=== PATIENT | female | born 1990 | race Asian ===

== ENCOUNTER 2021-08-16 05:50 | Inpatient (IN) ==
--- NOTE | 2021-08-08 10:05 | Anesthesiology Consultation ---
Date of Service August 08, 2021 Assessment & Plan (1) Encounter for pre-operative examination: Chart Review Chart Review: Acceptable Risk for Surgery and Patient NOT seen in Pre Admission Testing Consults Requested none History Surgery Operation Date: 08/16/21 09:20 Proposed Procedures p Section in LD - J. Vishnu Hoffman MD, FACOG Height/Weight Height: 5 ft 1 in Weight: 61.689 kg Allergies Allergy/AdvReac Type Severity Reaction Status Date / Time No Known Allergies Allergy Verified 08/07/21 15:10 Medications Home Medications Medication Instructions Recorded Confirmed Last Taken prenat.vits,camille,[id number] 1 tab PO DAILY 01/30/21 08/07/21 Unknown breast pump #1 ea 05/20/21 07/30/21 Unknown Past Medical History Medical History Endometriosis Fibroid uterus Past Family History Family History Grandfather Myocardial infarction Mother Thyroid dysfunction Other Diabetes No family history of adverse response to anesthesia Denies family history of Ovarian cancer Prostate cancer Breast cancer Colorectal cancer Cancer Past Surgical History Surgical History History of myomectomy Social History Smoking Status: Never smoker Do You Dip or Chew Tobacco: No Hx Alcohol Use: No Hx Substance Use: No substance use type: does not use Testing Laboratory Results Laboratory Tests 06/18/21 08:55 Hgb 11.8 L Hct 36.6 L
--- NOTE | 2021-08-15 13:59 | History & Physical Report ---
Date of Service August 15, 2021 Assessment & Plan (1) Encounter for pre-operative examination: Plan: section. The patient was counseled to the nature of the procedure including alternatives such as labor. Risks were discussed including bleeding infection injury to bowel bladder ureter vessels and even baby. Deep Vein thrombosis, pulmonary embolus discussed. Breakdown of incision reviewed. Deep vein thrombosis pulmonary embolus hernia and failure of the incision to heal were discussed Patient verbalized understanding of this and was given ample time to ask questions We discussed the prior myomectomy and endometriosis both of these places additio nal risks at adhesions and scar tissue and we discussed an increased chance of internal organ injury with increased scar tissue adhesions we discussed treatment of this as well if this were to occur History of Present Illness Primary Care Provider: NO PCP scheduled for 37 week C/S because of prior myomectomy Allergies Allergy/AdvReac Type Severity Reaction Status Date / Time No Known Allergies Allergy Verified 08/15/21 13:45 Home Medications Medication Instructions Recorded Confirmed Type prenat.vits,camille,mds-[id number]-[id number] 1 tab PO DAILY 01/30/21 08/15/21 History breast pump #1 ea 05/20/21 08/15/21 Rx Patient History Medical History Endometriosis Fibroid uterus Surgical History History of myomectomy Family History Grandfather Myocardial infarction Mother Thyroid dysfunction Other Diabetes No family history of adverse response to anesthesia Denies family history of Ovarian cancer Prostate cancer Breast cancer Colorectal cancer Cancer Social History Smoking Status: Never smoker Second Hand Exposure: No; Hx Alcohol Use: No Hx Substance Use: No Preferred Language: Mongolian Communication Ability: Effective Visual Impairment: No Limitations Hearing Ability: Normal Online Tutor Required: No Beliefs That Will Affect Care: None marital status: marital status details: Domingo Mohan (32) [phone] Current Living Situation: Spouse Current Living Situation Comment: lives with spouse, no pets current occupational status: employed current occupation: Teach at [employer] Feels Safe at Home: Yes Assistive Devices: None Review of Systems as per Subjective / HPI Physical Exam Constitutional: WD/WN, vitals as above well developed and well nourished Respiratory: normal respiratory effort, lungs clear to auscultation normal respiratory effort Cardiovascular: RRR, no murmur, no edema Gastrointestinal (Abdomen): normal bowel sounds, soft, nontender, no hepatosplenomegaly Coding Level of Care Code None Diagnoses Encounter for pre-operative examination Z01.818
[~2021-08-16 05:50] MED LIST: LACTATED RINGER'S 1,000 ML IV SCH
[2021-08-16] MEDS ORDERED: CITRIC ACID/SODIUM CITRATE 15 ML UDC PO SCH (06:00)
[2021-08-16] MEDS ORDERED: ceFAZolin 2000MG 2,000 MG/15 ML SYR IV SCH (06:00)
[2021-08-16 06:23] LABS: Basophils # (auto) 0.02 K/uL (0-0.2); Basophils % (auto) 0.2 %; Eosinophils % (auto) 1.1 %; Hemoglobin 12.8 g/dL (12.0-16.0); Immature Granulocytes # (auto) 0.12 K/uL (0.00-0.02); Immature Granulocytes % (auto) 1.3 %; Mean Corpuscular Hgb Conc 33.7 g/dL (32-36); Mean Corpuscular Volume 89.2 fL (80-100); Mean Platelet Volume 12.5 fL (7.4-10.4); Monocytes # (auto) 0.89 K/uL (0.11-0.59); Monocytes % (auto) 9.4 %; Neutrophils # (auto) 6.48 K/uL (1.4-6.5); Platelet Count 182 K/uL (130-400); RDW Coefficient of Variation 13.6 % (11.5-14.5); RDW Standard Deviation 44.4 fL (36.4-46.3); Red Blood Count 4.26 M/uL (4.2-5.4); White Blood Count 9.51 K/uL (4.8-10.8)
--- NOTE | 2021-08-16 06:52 | History & Physical Bridge Note ---
Date of Service August 16, 2021 History & Physical Bridge Note I have examined the patient, reviewed the History & Physical and in the interval since the performance of the History & Physical I have noted the following changes of clinical significance: no changes noted
[2021-08-16] MEDS ORDERED: ePHEDrine sulfate 50 MG/ML AMP IV PRN (07:25)
[2021-08-16] MEDS ORDERED: KETOROLAC 30 MG/ML VIAL IV PRN (07:25)
[2021-08-16] MEDS ORDERED: NALOXONE HCL 0.4 MG/1 ML VIAL/CARP IV PRN (07:25)
[2021-08-16] MEDS ORDERED: ONDANSETRON INJ 2 MG/ML 2 ML VIAL IV PRN (07:25)
[2021-08-16] MEDS ORDERED: NALOXONE HCL 1 MG in SODIUM CHLORIDE 0.9% 1000ML 1,000 ML IV PRN (07:25)
[2021-08-16] MEDS ORDERED: NALOXONE HCL 0.08 MG in SYRINGE 1.8 ML IV PRN (07:25)
[2021-08-16] MEDS ORDERED: MoRPHine SULFATE PF 1 MG/ML 10 ML AMP/VIAL INT SPINAL ONE (07:25)
[2021-08-16] MEDS ORDERED: NALBUPHINE HCL INJ 10 MG/ML AMP IV PRN (07:25)
[2021-08-16] MEDS ORDERED: LACTATED RINGER'S 500 ML IV PRN (07:25)
[2021-08-16] MEDS ORDERED: diphenhydrAMINE 50 MG/ML VIAL IV PRN (07:25)
[2021-08-16] MEDS ORDERED: HYDROmorphone INJ 0.5 MG/0.5 ML SYR IV PRN (07:25)
[2021-08-16] MEDS ORDERED: SODIUM CHLORIDE 0.9% 1000ML 1,000 ML IV SCH (07:30)
[2021-08-16] MEDS ORDERED: NO NARCOTICS OR SEDATIVES SCH (07:30)
[2021-08-16] MEDS ORDERED: fentaNYL citrate 100 MCG/2 ML VIAL ONE (07:31)
[2021-08-16] MEDS ORDERED: MoRPHine SULFATE PF 1 MG/ML 10 ML AMP/VIAL ONE (07:32)
[2021-08-16] MEDS ORDERED: OXYTOCIN 10 UNITS/ML 10ML VIAL ONE (07:37)
[2021-08-16] MEDS ORDERED: PHENYLEPHRINE 100MCG/ML 5ML SYR ONE (07:54)
[2021-08-16] MEDS ORDERED: ONDANSETRON INJ 2 MG/ML 2 ML VIAL ONE (08:12)
[2021-08-16 08:46] LABS: Base Excess Cord Arterial Bld -0.6 mEq/L (-9-1.8); CO2 Cord Arterial Blood 58 mmHg (39.1-73.5); HCO3 Cord Arterial Blood 28 mmol/L (19.7-28.5); PO2 Cord Arterial Blood 19 mmHg (4.1-31.7)
[2021-08-16 08:51] LABS: Base Excess Cord Venous Blood -0.2 mEq/L (-7.7-1.9); Cord Venous Blood HCO3 26 mmol/L (18.4-26.8); Cord Venous Blood PCO2 46 mmHg (30.4-57.2); Cord Venous Blood PO2 24 mmHg (14.1-43.3)
[2021-08-16 08:52] LABS: Oxygen Sat Cord Arterial Blood < 60.0 % (<60)
[2021-08-16 08:53] LABS: Cord Venous Blood pH 7.36 (7.20-7.44); O2 Saturation Cord Venous Bld < 60.0 % (<68); pH Cord Arterial Blood 7.29 (7.1-7.38)
--- NOTE | 2021-08-16 08:55 | Operative Report ---
PG Post Operative Report Pre & Post Diagnosis Operation Date: 08/16/21 07:30 Pre-Op Diagnosis: History of Myomectomy. 37 weeks gestation. Post-Op Diagnosis: Same as above. I identified the patient and participated in the time-out.: Yes Procedure Operation Date: 08/16/21 07:30 Actual Procedures p Section (Delivery of Baby Through Abdominal Incision)delivery of live female child and 0809 in OR #3(Bilateral) - Donovan Hoffman MD, FACOG Surgeon Donovan Hoffman MD, FACOG Drop Worker Dr. Wallace Estimated Blood Loss 500 Findings Consistent with Post-Op Diagnosis Specimens Cord gases cord blood Description of Procedure Regional anesthetic had been given by anesthesia patient was prepped and draped with a leftward tilt preoperative antibiotics had been given in appropriate timing by anesthesiology. Once the prep was allowed to fully dry timeout was performed. Pickups with teeth were used to test the incision area was found to be adequate for incision as the patient did not feel sharp pain. Scalpel was used to make a Pfannenstiel incision on the lower abdomen. We then cut through the subcutaneous fat down to the level of the anterior rectus sheath fascia this was cut in the midline and then extended laterally with the curved Alva scissors. At this stage we then placed 2 Desean clamps on the anterior aspect of the fascia. Using the curved Alva's we are able to dissect the fascia superiorly away from the rectus muscles. Care was taken to maintain hemostasis. Desean clamps were then placed to the inferior aspect of the anterior sheath of the fascia. Fascia was then dissected away from the rectus muscles inferiorly towards the pubic bone. A Desean was then placed in the midline both inferiorly and superiorly. This was to allow exposure by retraction rectus muscles were in the midline with were then able to cut through the peritoneum and then enter the peritoneal cavity. Opening was enlarged to allow exposure of the peritoneal cavity both superiorly and inferiorly. Once adequate space was obtained a bladder retractor was placed to expose the lower segment Metzenbaums were used to dissect the bladder flap inferiorly away from the uterus. This was done sharply bladder retractor was then repositioned to expose the lower segment of the uterus. There was a uterine fibroid however it was not in the low segment anteriorly Fresh scalpel was used to make a low transverse incision on the uterus. Uterus was then entered bluntly with the operators finger, membranes ruptured and the opening was enlarged using the operators fingers bluntly pulling superiorly and inferiorly to allow exposure. Baby was delivered by first flexion of the head elevation of the head out of the pelvis and then pressure by the assistant sales director on the maternal abdomen. Baby's head was then delivered mouth and then nares were suctioned and then using gentle traction the baby was fully delivered. Live vigorous . Fluid was clear cord clamped and cut cord gases obtained cord blood obtained baby handed to pediatrics. Placenta removed was removed with traction we ensure the entire placenta was removed with a moist lap sponge into the uterus Uterus could not be exteriorized, because of the large uterine fibroid so the repair was done while the uterus was in the pelvis using retractors for exposure. IV Pitocin had been started by anesthesia tone improved there were no extensions the uterus was then closed using 0 Monocryl in a 2 layer closure the first layer closed in a running locked fashion from left to right and then a second closure from left to right in a running nonlocked fashion. At this stage hemostasis was excellent. Uterus was placed back in the peritoneal cavity with suction irrigation out and inspection of the uterus at this stage revealed excellent hemostasis I did apply Jassi to the left lower quadrant aspect of the incision as there was some minimal ooze Retractors were removed urine color was clear at this stage of the case we inspected the rectus muscles they were hemostatic fascia was closed with 0 Vicryl subcutaneous fat was irrigated and closed with 3-0 Vicryl skin closed with 4-0 subcuticular Monocryl I attest to the content of the Intraoperative Record and any orders documented therein. Any exceptions are noted below. OB Procedure Charges 51010
[2021-08-16] MEDS ORDERED: HYDROCORTISONE ACETATE 25 MG SUPP PR PRN (08:58)
[2021-08-16] MEDS ORDERED: MAGNESIUM HYDROXIDE SUSP 30 ML UDC PO PRN (08:58)
[2021-08-16] MEDS ORDERED: BENZOCAINE 20% AER SPR 82.5 GM CAN EXT PRN (08:58)
[2021-08-16] MEDS ORDERED: DIPHTHERIA/TETANUS/PERTUSSIS 0.5 ML SYR/VIAL IM ONE (08:58)
[2021-08-16] MEDS ORDERED: SENNA 8.6 MG TAB PO PRN (08:58)
[2021-08-16] MEDS ORDERED: ARISTA ABSORBABLE HEMOSTAT 3GM TOP ONE (08:59)
[2021-08-16] MEDS ORDERED: LACTATED RINGER'S 1,000 ML IV SCH (09:00)
--- NOTE | 2021-08-16 10:53 | Anesthesiology Progress Note ---
Date of Service August 16, 2021 Anesthesia Post Procedure Vital Signs Vital Signs: Temp Pulse Resp BP Pulse Ox 08/16/21 10:42 86 123/73 08/16/21 10:40 87 99 08/16/21 10:35 86 99 08/16/21 10:30 83 99 08/16/21 10:25 88 100 08/16/21 10:20 86 99 08/16/21 10:18 73 115/67 08/16/21 10:15 82 100 08/16/21 10:10 82 99 08/16/21 10:05 78 99 08/16/21 10:00 96 H 100 08/16/21 09:55 89 100 08/16/21 09:50 83 99 08/16/21 09:45 92 H 100 08/16/21 09:40 85 131/71 100 08/16/21 09:35 88 100 08/16/21 09:30 85 20 125/75 100 08/16/21 09:25 82 100 08/16/21 09:20 84 20 129/68 98 08/16/21 09:15 90 100 08/16/21 09:10 76 20 105/61 100 08/16/21 09:05 86 99 08/16/21 09:00 81 105/57 L 99 08/16/21 08:55 36.8 C 81 20 99 08/16/21 08:49 82 102/55 L 98 08/16/21 07:26 90 99 08/16/21 07:25 77 111/71 08/16/21 07:21 85 99 08/16/21 06:00 36.8 C 18 08/16/21 05:59 73 119/71 Transfer of Care Handoff Completed per policy Notes Mental Status: alert / awake / arousable Patient Amnestic to Procedure: Yes Nausea / Vomiting: adequately controlled Pain: adequately controlled Airway Patency, RR, SpO2: stable & adequate BP & HR: stable & adequate Hydration State: stable & adequate Neuraxial Anesthesia: was administered and sensory block is resolving Anesthetic Complications: no major complications apparent and Pt Satisfied with anesthetic care
[2021-08-16] MEDS: OXYTOCIN 20 UNITS in LACTATED RINGER'S 1,000 ML IV SCH ×2 (12:34→20:31)
[2021-08-16] MEDS: SIMETHICONE 80 MG CHEW PO SCH ×3 (14:14→20:31)
[2021-08-16] MEDS: DOCUSATE SODIUM 100 MG CAP PO SCH (20:31)
[2021-08-17] MEDS ORDERED: DC INTRASPINAL MORPHINE SCH (01:25)
[2021-08-17] MEDS ORDERED: KETOROLAC 30 MG/ML VIAL IV PRN (01:26)
[2021-08-17] MEDS ORDERED: PROMETHAZINE HCL 25 MG in SODIUM CHLORIDE 0.9% 50 ML IV PRN (01:26)
[2021-08-17] MEDS ORDERED: diphenhydrAMINE 50 MG/ML VIAL IV PRN (01:26)
[2021-08-17] MEDS ORDERED: ONDANSETRON INJ 2 MG/ML 2 ML VIAL IV PRN (01:26)
[2021-08-17] MEDS ORDERED: diphenhydrAMINE Capsule 25 MG CAP PO PRN (01:26)
[2021-08-17] MEDS ORDERED: oxyCODONE/ACETAMINOPHEN 5mg/325mg TAB PO PRN (01:26)
[2021-08-17 07:13] LABS: Basophils # (auto) 0.03 K/uL (0-0.2); Basophils % (auto) 0.1 %; Eosinophils # (auto) 0.09 K/uL (0-0.5); Eosinophils % (auto) 0.4 %; Hematocrit (blood only) 30.4 % (37-47); Hemoglobin 10.2 g/dL (12.0-16.0); Immature Granulocytes # (auto) 0.06 K/uL (0.00-0.02); Immature Granulocytes % (auto) 0.3 %; Lymphocytes # (auto) 1.21 K/uL (1.2-3.4); Lymphocytes % (auto) 5.6 %; Mean Corpuscular Hemoglobin 29.7 pg (25-34); Mean Corpuscular Hgb Conc 33.6 g/dL (32-36); Mean Corpuscular Volume 88.6 fL (80-100); Mean Platelet Volume 12.2 fL (7.4-10.4); Monocytes # (auto) 1.15 K/uL (0.11-0.59); Monocytes % (auto) 5.3 %; Neutrophils # (auto) 18.97 K/uL (1.4-6.5); Neutrophils % (auto) 88.3 %; Nucleated RBC # (auto) 0.02 K/uL (0-0); Nucleated RBC % (auto) 0.1 %; Platelet Count 159 K/uL (130-400); RDW Coefficient of Variation 13.6 % (11.5-14.5); RDW Standard Deviation 44.4 fL (36.4-46.3); Red Blood Count 3.43 M/uL (4.2-5.4); White Blood Count 21.51 K/uL (4.8-10.8)
[2021-08-17] MEDS: IBUPROFEN 600 MG TAB PO PRN ×3 (07:38→20:52)
[2021-08-17] MEDS: FERROUS SULFATE 325 MG TAB PO SCH (07:38)
[2021-08-17] MEDS: PRENATAL VITAMIN 1 TAB PO SCH (07:39)
[2021-08-17] MEDS: DOCUSATE SODIUM 100 MG CAP PO SCH ×2 (07:39→20:52)
[2021-08-17] MEDS: SIMETHICONE 80 MG CHEW PO SCH ×4 (07:39→20:52)
--- NOTE | 2021-08-17 09:04 | Obstetrical Progress Note ---
Date of Service August 17, 2021 Assessment & Plan (1) delivery delivered: Plan: 31yo POD 1 s/p LTCS) at 37 weeks -Continue routine care -Vitals reviewed- HDS, afebrile -GBS neg -Encourage ambulation, regular diet -corona removed this morning, voiding trial today -brought abdominal binder with her, may use for relief -Pain control with ibuprofen, acetaminophen PRN -Encourage -Hgb 10.2 stable -f/u in 6 weeks with OB after discharge; dc likely tomorrow Admission and Anticipated Discharge Date Admission Date: August 16, 2021 Supervising Physician Co-Signing Physician Notes Patient seen and evaluated and agree with the above findings and plan. Routine care. Subjective Ambulation: not yet Voiding: not yet, corona removed this morning Passing Gas: yes BM: not yet Diet Tolerance: regular w/o N/V Lochia: small Feeding Type: breast Current Pain Level(1-10): 4 Review of Systems Review of Systems: Denies fevers/chills. Denies dyspnea, cough. Denies chest pain. Denies breast pain or discharge. Denies dysuria. Denies headache. Denies back pain. Physical Exam Physical Exam: General: Alert, oriented, no acute distress Cardiac: Regular rate and rhythm, normal S1, S2. No murmurs appreciated. Respiratory: Clear to auscultation b/l with good air flow entry, symmetric chest rise and fall. No wheezes or crackles. No increased work of breathing or accessory muscle use Abdomen: Soft, nontender, nondistended. Fundus firm and palpable at umbilicus. No guarding or rebound. Bandages removed this morning, incision site healing well with no signs of infection Skin: No rashes or lesions Extremities: Warm, dry, well-perfused. No lower extremity edema, erythema or swelling. No calf tenderness. Results & Data ([facility]) Vital Signs (Past 12 Hours) Vital Signs Temp Pulse Resp BP Pulse Ox 08/17/21 03:45 36.9 C 88 20 99/64 L 08/17/21 00:15 37.0 C 80 20 97/59 L 98 08/16/21 23:45 20 96 08/16/21 21:45 20 96 Resident Activity Tracking Resident Involvement: Resident Care Provided Care Provided: OB Delivery
[2021-08-17] MEDS ORDERED: bisacodyL 5 MG TABEC PO SCH (20:00)
[2021-08-18] MEDS: IBUPROFEN 600 MG TAB PO PRN ×4 (03:31→20:05)
[2021-08-18 06:27] LABS: Hematocrit (blood only) 29.7 % (37-47); Hemoglobin 9.7 g/dL (12.0-16.0)
[2021-08-18] MEDS: FERROUS SULFATE 325 MG TAB PO SCH (07:40)
[2021-08-18] MEDS: DOCUSATE SODIUM 100 MG CAP PO SCH ×2 (07:41→20:05)
[2021-08-18] MEDS: PRENATAL VITAMIN 1 TAB PO SCH (07:41)
[2021-08-18] MEDS: SIMETHICONE 80 MG CHEW PO SCH ×4 (07:41→20:05)
--- NOTE | 2021-08-18 07:46 | Obstetrical Progress Note ---
Date of Service August 18, 2021 Assessment & Plan (1) delivery delivered: doing well, ambulating, cont to work on Subjective Ambulation: ambulating normally Voiding: no voiding problems Passing Gas:: Yes Diet Tolerance:: regular diet Lochia:: Small Feeding Type:: breast feeding Physical Exam Gastrointestinal (Abdomen) normal bowel sounds, soft, nontender, no hepatosplenomegaly Results & Data ([facility]) Vital Signs (Past 12 Hours) Vital Signs Temp Pulse Resp BP Pulse Ox 08/17/21 23:15 97.9 F 102 H 16 101/66 08/17/21 19:49 98.2 F 100 H 18 103/61 99
[2021-08-18] MEDS ORDERED: bisacodyL 10 MG SUPP PR PRN (08:50)
[2021-08-19] MEDS: IBUPROFEN 600 MG TAB PO PRN ×4 (00:01→13:04)
--- NOTE | 2021-08-19 07:40 | Obstetrical Progress Note ---
Date of Service August 19, 2021 Assessment & Plan (1) delivery delivered: Plan: 31yo POD 3 s/p LTCS at 37 weeks -Continue routine care -Vitals reviewed- HDS, afebrile -GBS neg -Encourage ambulation, regular diet -brought abdominal binder with her, may use for relief -Pain control with ibuprofen, acetaminophen PRN -Encourage -Hgb 9.7 stable -will see solution consultant today, if comfortable may be able to discharge later this afternoon -f/u in 6 weeks with OB after discharge Admission and Anticipated Discharge Date Admission Date: August 16, 2021 Supervising Physician Co-Signing Physician Notes Resident Physician Supervision Note: I was present with [Name of resident] during the history and exam. I discussed the case with the resident and agree with the findings and plan as documented in the note. Any exceptions or clarifications are listed here: [None] Documented By: Donovan Hoffman MD, FACOG Subjective Ambulation: yes Voiding: yes Passing Gas: yes BM: not yet Diet Tolerance: regular w/o N/V Lochia: small Feeding Type: breast Current Pain Level(1-10): 4 Review of Systems Review of Systems: Denies fevers/chills. Denies dyspnea, cough. Denies chest pain. Denies breast pain or discharge. Denies dysuria. +mild headache. Denies back pain. Physical Exam Physical Exam: General: Alert, oriented, no acute distress Cardiac: Regular rate and rhythm, normal S1, S2. No murmurs appreciated. Respiratory: Clear to auscultation b/l with good air flow entry, symmetric chest rise and fall. No wheezes or crackles. No increased work of breathing or accessory muscle use Abdomen: Soft, nontender, nondistended. Fundus firm and palpable at 1cm below umbilicus. No guarding or rebound. Incision site healing well with no signs of infection Skin: No rashes or lesions Extremities: Warm, dry, well-perfused. No lower extremity edema, erythema or swelling. No calf tenderness. Results & Data ([facility]) Vital Signs (Past 12 Hours) Vital Signs Temp Pulse Resp BP Pulse Ox 08/19/21 00:05 36.6 C 88 18 107/70 08/18/21 19:55 36.7 C 87 18 115/74 99 Resident Activity Tracking Resident Involvement: Resident Care Provided Care Provided: OB Delivery
[2021-08-19] MEDS: DOCUSATE SODIUM 100 MG CAP PO SCH (08:37)
[2021-08-19] MEDS: PRENATAL VITAMIN 1 TAB PO SCH (08:37)
[2021-08-19] MEDS: FERROUS SULFATE 325 MG TAB PO SCH (08:37)
[2021-08-19] MEDS: SIMETHICONE 80 MG CHEW PO SCH ×2 (08:37→13:04)
--- NOTE | 2021-08-22 08:00 | Discharge Summary ---
Date of Service August 22, 2021 Admission HPI Per Admitting Provider scheduled for 37 week C/S because of prior myomectomy Admission Exam (Per Admitting) Constitutional WD/WN, vitals as above well developed and well nourished Respiratory normal respiratory effort, lungs clear to auscultation normal respiratory effort Cardiovascular RRR, no murmur, no edema Gastrointestinal (Abdomen) normal bowel sounds, soft, nontender, no hepatosplenomegaly Discharge Data Consultations 08/16/21 05:35 Consult Anesthesiology Stat Procedures Performed Operation Date: 08/16/21 07:30 Actual Procedures p Section (Delivery of Baby Through Abdominal Incision)delivery of live female child and 0809 in OR #3(Bilateral) - Donovan Hoffman MD, FACOG Hospital Course (1) delivery delivered: 31yo POD 3 s/p LTCS at 37 weeks -Continue routine care -Vitals reviewed- HDS, afebrile -GBS neg -Encourage ambulation, regular diet -brought abdominal binder with her, may use for relief -Pain control with ibuprofen, acetaminophen PRN -Encourage -Hgb 9.7 stable -will see mobile sales consultant today, if comfortable may be able to discharge later this afternoon -f/u in 6 weeks with OB after discharge Coding Level of Care Code None Diagnoses delivery delivered O82
== END 2021-08-19 13:50 | disposition home or self-care (01) | DRG 788 ==
LOC: PREOBSVTOIN 05:50 → 4S1 05:51 → EDSTATUS 09:20 → 4S2 11:49

== ENCOUNTER 2024-05-09 09:00 | Inpatient (IN) ==
--- NOTE | 2024-04-29 11:34 | Anesthesiology Consultation ---
Date of Service April 29, 2024 Assessment & Plan (1) Encounter for pre-operative examination: - holter monitor report not available, ordered by OB. - Per assessment services manager on 04/29/24: No known infectious disease contacts, current infectious disease symptoms in past 10 days or COVID positive test result in the past 30 days. Chart Review Chart Review: customs entry clerk initiated History Surgery Operation Date: 05/09/24 09:00 Proposed Procedures p Section (Delivery of Baby Through Abdominal Incision) - Heladio Burns MD Height/Weight Height: 5 ft 1 in Weight: 66.224 kg Allergies Allergy/AdvReac Type Severity Reaction Status Date / Time No Known Allergies Allergy Verified 04/29/24 10:54 Medications Home Medications Medication Instructions Recorded Confirmed Last Taken 21-iron fu-folic acid 1 dose PO DAILY 10/05/23 04/29/24 Unknown [ Complete] Past Medical History Medical History (Updated 04/29/24 @ 11:32 by Mickie Ruiz PA-C) History of chicken pox childhood Palpitations wore monitor, has not heard back from cardio about results Past Family History Family History Grandfather Myocardial infarction Mother Thyroid dysfunction Other Diabetes No family history of adverse response to anesthesia Denies family history of Ovarian cancer Prostate cancer Breast cancer Colorectal cancer Cancer Past Surgical History Surgical History History of myomectomy Hx of LASIK S/P section x1 Social History Smoking Status: Never smoker Do You Dip or Chew Tobacco: No Hx Alcohol Use: No Hx Substance Use: No substance use type: does not use
--- NOTE | 2024-05-09 07:30 | History & Physical Report ---
Date of Service May 09, 2024 Assessment & Plan (1) Previous delivery affecting , antepartum: (2) Elderly multigravida: Plan Inessa is a 34-year-old G2, P1 currently at38 weeks 3 days gestational age presents for repeat section. Patient has had 1 prior which was performed for history of myomectomy. Consent forms reviewed and signed in clinic. Category 1 tracing/reactive NST. Vitals within normal limits. History of Present Illness Primary Care Provider: Helene Joshi MD Inessa is a 34-year-old G2, P1 currently at 38 weeks 3 days gestational age presents for repeat with history of myomectomy. complicated by: AMA Weekly NST's @ 36 weeks Prior - History of Myomectomy (op report received) -05/2020 Dr Garcia [facility] [place] - recommend CS for delivery -Delivery by CS 37-38 6/ per ACOG C/S SCHEDULED FOR 05/09/[address] LAYNE AND DR. FIGUEROA ASSIST Bilateral Endometriomas at 15cc and 45cc Fibroid Uterus - Left IM at 3.2cm GBS Positive in Urine *Treat in Labor OB Labs: Blood Type B Positive 10/12/23 Antibody Screen NEGATIVE 10/12/23 Hgb 12.8 g/dl (12.0-16.0) 03/02/24 Hct 38.1 % (37.0-47.0) 03/02/24 MCV 87.2 fL (80.0-100.0) 10/12/23 Plt Count 304 K/uL (130-400) 10/12/23 Rubella IgG Antibody Immune (Immune) 10/12/23 RPR Nonreactive (Nonreactive) 10/12/23 Treponema pallidum Ab Negative (Negative) 03/02/24 Hep Bs Antigen Neg (Neg) 01/30/21 Hep Bs Antigen NON-REACTIVE (NON-REACTIVE) 10/12/23 Hepatitis C Ab (EIA) NON-REACTIVE (NON-REACTIVE) 10/12/23 HIV 1&2 Ab/P24 Ag 4thGn Neg (Neg) 01/30/21 HIV (1&2) Ag & Ab Conf NON-REACTIVE (NON-REACTIVE) 10/12/23 Glucose 1 Hr 50 gm 158 mg/dl (70-130) H 03/02/24 Maternal Serum AFP 38.3 ng/mL 03/27/21 OB Optional Labs: Chlamydia trachomatis RNA Not Detected (NotDetected) 10/12/23 Neisseria gonorrhoeae RNA Not Detected (NotDetected) 10/12/23 Alpha Fetoprotein Triple Screen SEE NOTE 03/27/21 Allergies Allergy/AdvReac Type Severity Reaction Status Date / Time No Known Allergies Allergy Verified 05/04/24 13:34 Home Medications Medication Instructions Recorded Confirmed Type 21-iron fu-folic acid 1 dose PO DAILY 10/05/23 05/04/24 History [ Complete] Patient History Medical History History of chicken pox childhood Palpitations wore monitor, has not heard back from cardio about results Surgical History History of myomectomy Hx of LASIK S/P section x1 Family History Grandfather Myocardial infarction Mother Thyroid dysfunction Other Diabetes No family history of adverse response to anesthesia Denies family history of Ovarian cancer Prostate cancer Breast cancer Colorectal cancer Cancer Social History (Updated 10/05/23 @ 10:51 by Suzan Michael) Smoking Status: Never smoker Second Hand Exposure: No; Do You Dip or Chew Tobacco: No; Tobacco Cessation Education Requested by Patient: No Hx Alcohol Use: No Hx Substance Use: No Preferred Language: Lithuanian Communication Ability: Effective Visual Impairment: No Limitations Hearing Ability: Normal Lead Data Entry Operator Required: No Beliefs That Will Affect Care: None marital status: marital status details: Domingo Mohan (35) [phone] Current Living Situation: Family Current Living Situation Comment: lives with spouse, child, no pets current occupational status: employed current occupation: Teach at [employer] Other Information That Helps Us Care for You: No Feels Safe at Home: Yes Safety Concerns: Feels Safe At This Time Assistive Devices: None Physical Exam Genitourinary: OB Exam Monitor Tracing: + external FHT monitor used, + external uterine monitor used, + category I and + normal FHT variability; no early decelerations present, no late decelerations present and no variable decelerations Coding Level of Care Code None Diagnoses Previous delivery affecting , antepartum O34.219 Elderly multigravida O09.529
[2024-05-09] MEDS ORDERED: OXYTOCIN 30 UNITS/NSS 30 UNITS/500 ML BAG IV PRN (10:45)
[2024-05-09] MEDS ORDERED: LIDOCAINE 1% LOCAL 20 ML VIAL INFIL PRN (10:45)
[2024-05-09] MEDS ORDERED: SODIUM CHLORIDE 0.9% 50 ML IV PRN (11:01)
[2024-05-09] MEDS ORDERED: SODIUM CHLORIDE 0.9% 100 ML IV PRN (11:01)
[2024-05-09 11:24] LABS: Hematocrit (blood only) 38.6 % (37.0-47.0); Hemoglobin 13.2 g/dl (12.0-16.0); Mean Corpuscular Hemoglobin 29.3 pg (25.0-34.0); Mean Corpuscular Hgb Conc 34.2 g/dL (32.0-36.0); Mean Corpuscular Volume 85.8 fL (80.0-100.0); Mean Platelet Volume 12.6 fL (9.4-12.4); Platelet Count 189 K/uL (130-400); RDW Coefficient of Variation 13.3 % (11.5-14.5); RDW Standard Deviation 41.7 fL (36.4-46.3)
[2024-05-09] MEDS: ACETAMINOPHEN 500 MG TAB PO SCH (11:27)
[2024-05-09] MEDS: LACTATED RINGER'S 1,000 ML IV SCH (11:35)
[2024-05-09] MEDS ORDERED: ONDANSETRON INJ 2 MG/ML 2 ML VIAL ONE (11:47)
[2024-05-09] MEDS ORDERED: PHENYLEPHRINE HCL 25 MG/250 ML NSS IV ONE (11:47)
[2024-05-09] MEDS ORDERED: ePHEDrine sulfate 50 MG/5 ML SYR ONE (11:47)
[2024-05-09] MEDS ORDERED: DEXAMETHASONE SOD INJ 4 MG/ML VIAL ONE (11:47)
[2024-05-09] MEDS ORDERED: MoRPHine SULFATE PF 1 MG/ML 10 ML AMP/VIAL ONE (11:48)
[2024-05-09] MEDS ORDERED: fentaNYL citrate PF 100 MCG/2 ML VIAL ONE (11:48)
[2024-05-09] MEDS: CITRIC ACID/SODIUM CITRATE 15 ML UDC PO SCH (15:01)
[2024-05-09] MEDS: ceFAZolin 2,000 MG in SYRINGE 0 ML IV SCH (15:02)
[2024-05-09] MEDS: OXYTOCIN 20 UNITS/LR 1,002 ML IV SCH (15:30)
[2024-05-09] MEDS ORDERED: ONDANSETRON INJ 2 MG/ML 2 ML VIAL IV PRN ×2 (15:48→16:20)
[2024-05-09] MEDS ORDERED: diphenhydrAMINE 50 MG/ML VIAL IV PRN ×2 (15:48→16:20)
[2024-05-09] MEDS ORDERED: HYDROmorphone INJ 0.5 MG/0.5 ML SYR IV PRN ×2 (15:48→16:20)
[2024-05-09] MEDS ORDERED: NALOXONE HCL 1 MG in SODIUM CHLORIDE 0.9% 1,000 ML IV PRN (15:48)
[2024-05-09] MEDS ORDERED: NALBUPHINE HCL INJ 10 MG/ML AMP IV PRN (15:48)
[2024-05-09] MEDS ORDERED: NALOXONE HCL 0.4 MG/1 ML VIAL/CARP IV PRN (15:48)
[2024-05-09] MEDS ORDERED: NALOXONE HCL 0.08 MG in SYRINGE 1.8 ML IV PRN (15:48)
[2024-05-09] MEDS ORDERED: ePHEDrine sulfate 50 MG/ML AMP IV PRN (15:48)
[2024-05-09] MEDS ORDERED: MoRPHine SULFATE PF 1 MG/ML 10 ML AMP/VIAL INT SPINAL ONE (15:48)
[2024-05-09] MEDS ORDERED: PROMETHAZINE 6.25 MG/50.25 ML BAG IV PRN (15:48)
[2024-05-09] MEDS ORDERED: oxyCODONE HCL IR 5 MG TAB (IMMEDIATE RELEASE) PO PRN (15:48)
[2024-05-09] MEDS ORDERED: NO NARCOTICS OR SEDATIVES SCH (16:00)
[2024-05-09] MEDS ORDERED: DC INTRASPINAL MORPHINE SCH (16:00)
--- NOTE | 2024-05-09 16:17 | Operative Report ---
Post Operative Report Pre & Post Diagnosis Operation Date: 05/09/24 12:30 Pre-Op Diagnosis: History of Section, History of Myomectomy Post-Op Diagnosis: History of Section, History of Myomectomy I identified the patient and participated in the time-out.: Yes Procedure Operation Date: 05/09/24 12:30 Actual Procedures p Section (Delivery of Baby Through Abdominal Incision) delivery of live male child at 1530 - Heladio Burns MD Surgeon Heladio Burns MD Support Architect Dr. Skelton Quantitative Blood Loss (QBL) per chart Findings Consistent with Post-Op Diagnosis Specimens Placenta Description of Procedure Patient was taken the operating room after consent was ensured. Upon presentation she was properly identified. Anesthesia obtained and patient prepped and draped in normal sterile fashion. Preprocedural timeout was performed. A Pfannenstiel incision was made with a knife. This was carried down to underlying fascia with the Bovie and blunt dissection. The fascia was nicked at the midline with a knife and extended laterally with pickluz maria and Alva scissors. The fascia was then dissected off the rectus muscles using blunt dissection both superiorly and inferiorly. Abdominal cavity was entered bluntly and placed on stretch to provide adequate room for delivery. A low transverse uterine incision was made with a knife. Head of the was delivered through the hysterotomy followed by body and shoulders. noted to be vigorous at time of delivery and a 30 second delayed cord clamping was initiated after which the cord was double clamped and cut. Baby taken to the waiting nursery staff. Attention was turned to delivery of the placenta which delivered intact with three-vessel cord gentle cord traction. Uterus was exteriorized and several passes were made to remove any remaining membranes with a dry lap. Hysterotomy was reapproximated with 0 Vicryl continuous running lock stitch with a second imbricating layer performed. Posterior cul-de-sac cleaned of clots and debris's. Uterus returned maternal abdomen and right left paracolic gutters cleaned of clots and debris's. Hysterotomy remained hemostatic. Subcutaneous fascia and muscle layers inspected noted be hemostatic. Fascia was reapproximated 0 Vicryl continuous running stitch. Subcutaneous layer reapp roximated 2 layers using 2-0 plain. Skin reapproximated with 3-0 Vicryl and continuous subcuticular stitch. Dermabond placed on top. Both mother and in stable condition at the completion of the case. Needle sponge and instrument counts correct at the completion of the case. No complications noted and blood loss per QBL. I attest to the content of the Intraoperative Record and any orders documented therein. Any exceptions are noted below. OB Procedure Charges 37495
--- NOTE | 2024-05-09 16:18 | Post Operative Brief Note ---
PG Immediate Post Op with CF Date of Surgery May 09, 2024 Pre & Post Diagnosis Operation Date: 05/09/24 12:30 Pre-Op Diagnosis: History of Section, History of Myomectomy Post-Op Diagnosis: History of Section, History of Myomectomy I identified the patient and participated in the time-out.: Yes Procedure Operation Date: 05/09/24 12:30 Actual Procedures p Section (Delivery of Baby Through Abdominal Incision) delivery of live male child at 1530 - Heladio Burns MD Surgeon Heladio Burns MD Color Maker Formulator Dr. Skelton Estimated Blood Loss 319 Findings Consistent with Post-Op Diagnosis Specimens Specimen Description: 1. Placenta, HOLD 2. Cord Blood Drains Mckeon Catheter OB Procedure charges OB Charges [id number]
[2024-05-09] MEDS ORDERED: LACTATED RINGER'S 1,000 ML IV SCH (16:20)
[2024-05-09] MEDS ORDERED: CALCIUM CARBONATE 500 MG CHEWABLE TAB PO PRN (16:20)
[2024-05-09] MEDS ORDERED: SENNA 8.6 MG TAB PO PRN (16:20)
[2024-05-09] MEDS ORDERED: HYDROCORTISONE ACETATE 25 MG SUPP PR PRN (16:20)
[2024-05-09] MEDS ORDERED: diphenhydrAMINE Capsule 25 MG CAP PO PRN (16:20)
[2024-05-09] MEDS ORDERED: BENZOCAINE 20% SPRY 85 APPLN/85 GM CAN EXT PRN (16:20)
[2024-05-09] MEDS ORDERED: DIPHTHER/TETAN/PERTUS Vaccine (Tdap, Adol/Adult) 0.5mL IM ONE (16:20)
[2024-05-09] MEDS ORDERED: MAGNESIUM HYDROXIDE SUSP 30 ML UDC PO PRN (16:20)
[2024-05-09] MEDS ORDERED: PROMETHAZINE 12.5 MG/50.5 ML BAG IV PRN (16:20)
--- NOTE | 2024-05-09 16:22 | Anesthesiology Progress Note ---
Date of Service May 09, 2024 Anesthesia Post Procedure Vital Signs Vital Signs: Temp Pulse Resp BP Pulse Ox 05/09/24 16:18 104 H 108/56 L 100 05/09/24 14:00 36.5 C 82 16 110/62 05/09/24 10:45 36.9 C 18 05/09/24 10:42 81 122/64 Transfer of Care Handoff Completed per policy Notes Mental Status: alert / awake / arousable and participated in evaluation Patient Amnestic to Procedure: No Nausea / Vomiting: adequately controlled Pain: adequately controlled Airway Patency, RR, SpO2: stable & adequate BP & HR: stable & adequate Hydration State: stable & adequate Neuraxial Anesthesia: was administered and sensory block is resolving Anesthetic Complications: no major complications apparent and Pt Satisfied with anesthetic care
[2024-05-09] MEDS: KETOROLAC 30 MG/ML VIAL IV SCH (16:44)
[2024-05-09] MEDS: SIMETHICONE 80 MG CHEW PO SCH (19:41)
[2024-05-09] MEDS: DOCUSATE SODIUM 100 MG CAP PO SCH (20:54)
[2024-05-09] MEDS: ACETAMINOPHEN 325 MG TAB PO SCH (23:05)
--- NOTE | 2024-05-10 05:31 | Obstetrical Progress Note ---
Date of Service <Janie Jaimes MD - Last Filed: 05/10/24 07:21> May 10, 2024 Assessment & Plan <Janie Jaimes MD - Last Filed: 05/10/24 07:21> (1) care and examination: Plan Day#1 s/p LTCS: Stable, continue routine care, continue OOB and ambulation, diet as tolerated Rh+, gbs +, ri, H/H and vitals noted Plan for d/c tomorrow <Radha Skelton DO - Last Filed: 05/10/24 07:30> (1) care and examination: Subjective <Janie Jaimes MD - Last Filed: 05/10/24 07:21> Ambulation: ambulating normally Voiding: no voiding problems Passing Gas:: Yes Diet Tolerance:: regular diet Lochia:: Small Feeding Type:: breast feeding Inessa is a 34yo female who is POD#1 following delivery at term. Says pain is minimal, 1/10. No problems around incision. Is voiding, tolerating meals overnight, able to ambulate on own. No bowel movement but is passing gas Currently breast feeding. Constitutional: no fever, no chills or no sweats Respiratory: no dyspnea Cardiovascular: no chest pain, no palpitations or no calf pain Breast: no breast pain Genitourinary (female): no dysuria no changes in vision, no headaches Physical Exam <Janie Jaimes MD - Last Filed: 05/10/24 07:21> General: Alert, oriented. No acute distress. Cardiac: Regular rate and rhythm, no murmurs, rubs, or gallops. Respiratory: Clear to auscultation bilaterally, no wheezes/rales/rhonchi. No increased work of breathing. Symmetrical chest rise. No respiratory distress. Abdomen: Soft, nontender, nondistended. Bowel sounds present. Uterus: Uterine fundus firm, surgical scar clean and healing well. Lower extremities: No lower extremity edema or swelling. No deep calf pain. Results & Data <Janie Jaimes MD - Last Filed: 05/10/24 07:21> Vital Signs (Past 12 Hours) Vital Signs Temp Pulse Pulse Pulse Resp BP BP 05/10/24 05:00 18 05/10/24 04:15 36.4 C L 81 18 99/62 L 05/10/24 04:05 18 05/10/24 03:04 16 05/10/24 02:00 18 05/10/24 00:58 18 05/09/24 23:57 18 05/09/24 23:30 05/09/24 23:30 36.4 C L 80 16 101/65 05/09/24 23:00 18 05/09/24 22:00 20 05/09/24 21:00 20 05/09/24 20:00 20 05/09/24 19:01 36.5 C 18 05/09/24 19:00 20 05/09/24 19:00 36.7 C 94 H 20 108/68 05/09/24 18:38 96 H 105/53 L 05/09/24 18:33 98 H 05/09/24 18:28 05/09/24 18:28 108 H 05/09/24 18:28 104 H 108/59 L 05/09/24 18:25 18 05/09/24 18:23 109 H 05/09/24 18:18 05/09/24 18:18 91 H 05/09/24 18:18 98 H 104/59 L 05/09/24 18:13 93 H 05/09/24 18:08 93 H 109/57 L 05/09/24 18:03 94 H 05/09/24 17:58 95 H 105/59 L 05/09/24 17:55 18 05/09/24 17:53 98 H 05/09/24 17:48 94 H 05/09/24 17:43 96 H 05/09/24 17:38 05/09/24 17:38 92 H 05/09/24 17:38 98 H 109/57 L 05/09/24 17:33 107 H 05/09/24 17:28 92 H 95/56 L 05/09/24 17:25 18 05/09/24 17:25 16 Pulse Ox O2 Del Method 05/10/24 05:00 98 05/10/24 04:15 100 Room Air 05/10/24 04:05 99 05/10/24 03:04 97 05/10/24 02:00 97 05/10/24 00:58 98 05/09/24 23:57 97 05/09/24 23:30 Room Air 05/09/24 23:30 98 Room Air 05/09/24 23:00 97 05/09/24 22:00 98 05/09/24 21:00 98 05/09/24 20:00 98 05/09/24 19:01 05/09/24 19:00 97 05/09/24 19:00 97 Room Air 05/09/24 18:38 05/09/24 18:33 97 05/09/24 18:28 98 05/09/24 18:28 05/09/24 18:28 05/09/24 18:25 05/09/24 18:23 98 05/09/24 18:18 96 05/09/24 18:18 05/09/24 18:18 05/09/24 18:13 97 05/09/24 18:08 97 05/09/24 18:03 97 05/09/24 17:58 96 05/09/24 17:55 05/09/24 17:53 98 05/09/24 17:48 98 05/09/24 17:43 97 05/09/24 17:38 97 05/09/24 17:38 05/09/24 17:38 05/09/24 17:33 97 05/09/24 17:28 97 05/09/24 17:25 05/09/24 17:25 Supervising Physician <Radha Skelton DO - Last Filed: 05/10/24 07:30> Co-Signing Physician Notes Resident Physician Supervision Note: I interviewed and examined the patient. Discussed with Dr. Jaimes and agree with findings and plan as documented in the note. Any exceptions or clarifications are listed here: POD1 doing well, continue postop care, anticipate DC home tomorrow. Documented By: Radha Skelton DO Resident Activity Tracking <Janie Jaimes MD - Last Filed: 05/10/24 07:21> Resident Involvement: Resident Care Provided Care Provided: Adult Hospital Medicine
[2024-05-10 06:31] LABS: Basophils # (auto) 0.05 K/uL (0.00-0.20); Basophils % (auto) 0.3 %; Eosinophils # (auto) 0.05 K/uL (0.00-0.50); Eosinophils % (auto) 0.3 %; Hematocrit (blood only) 32.3 % (37.0-47.0); Hemoglobin 10.9 g/dl (12.0-16.0); Immature Granulocytes # (auto) 0.14 K/uL (0.01-0.20); Immature Granulocytes % (auto) 0.8 %; Lymphocytes # (auto) 1.44 K/uL (1.20-3.40); Lymphocytes % (auto) 7.8 %; Mean Corpuscular Hemoglobin 29.5 pg (25.0-34.0); Mean Corpuscular Hgb Conc 33.7 g/dL (32.0-36.0); Mean Corpuscular Volume 87.3 fL (80.0-100.0); Mean Platelet Volume 12.6 fL (9.4-12.4); Monocytes # (auto) 1.27 K/uL (0.11-0.59); Monocytes % (auto) 6.9 %; Neutrophils # (auto) 15.43 K/uL (1.40-6.50); Neutrophils % (auto) 83.9 %; Platelet Count 168 K/uL (130-400); RDW Coefficient of Variation 13.2 % (11.5-14.5); RDW Standard Deviation 42.1 fL (36.4-46.3); White Blood Count 18.38 K/ul (4.8-10.8)
[2024-05-10] MEDS: PRENATAL VITAMIN 1 TAB PO SCH (08:41)
[2024-05-10] MEDS: FERROUS SULFATE 325 MG TAB PO SCH (08:41)
[2024-05-10] MEDS ORDERED: KETOROLAC 30 MG/ML VIAL IV PRN (15:57)
[2024-05-10] MEDS: IBUPROFEN 600 MG TAB PO SCH (16:01)
[2024-05-10] MEDS: bisacodyL 5 MG TABEC PO SCH (20:20)
--- NOTE | 2024-05-11 05:33 | Obstetrical Progress Note ---
Date of Service <Janie Jaimes MD - Last Filed: 05/11/24 06:57> May 11, 2024 Assessment & Plan <Janie Jaimes MD - Last Filed: 05/11/24 06:57> (1) care and examination: Plan Day#2 s/p LTCS: Stable, continue routine care, OOB and ambulation, diet as tolerated Rh+, gbs +, ri Plan for DC this afternoon <Jaclyn Montoya MD, FACOG - Last Filed: 05/11/24 07:20> (1) care and examination: Subjective <Janie Jaimes MD - Last Filed: 05/11/24 06:57> Inessa is a 34yo female who is POD#2 following delivery at term. Says pain is minimal, just cramping/soreness, no issues around incision Is voiding, tolerating meals, able to ambulate normally No bowel movement but is passing gas Currently breast feeding. Constitutional: no fever, no chills or no sweats Respiratory: no dyspnea Cardiovascular: no chest pain, no palpitations or no calf pain Breast: no breast pain Genitourinary (female): no dysuria Physical Exam <Janie Jaimes MD - Last Filed: 05/11/24 06:57> General: Alert, oriented. No acute distress. Cardiac: Regular rate and rhythm, no murmurs, rubs, or gallops. Respiratory: Clear to auscultation bilaterally, no wheezes/rales/rhonchi. No increased work of breathing. Symmetrical chest rise. No respiratory distress. Abdomen: Soft, nontender, nondistended. Bowel sounds present. Uterus: Uterine fundus firm, surgical scar clean and healing well. Lower extremities: No lower extremity edema or swelling. No deep calf pain. Results & Data <Janie Jaimes MD - Last Filed: 05/11/24 06:57> Vital Signs (Past 12 Hours) Vital Signs Temp Pulse Resp BP Pulse Ox O2 Del Method 05/10/24 23:25 36.7 C 81 18 97/62 L 99 Room Air Laboratory Results 05/11/24 06:02 Supervising Physician <Jaclyn Montoya MD, FACOG - Last Filed: 05/11/24 07:20> Co-Signing Physician Notes Resident Physician Supervision Note: I interviewed and examined the patient. Discussed with Dr. Jaimes and agree with findings and plan as documented in the note. Any exceptions or clarifications are listed here: Doing well. Would like d/c later this pm. Discussed instructions. f/u 6 weeks in office. scripts sent. Documented By: Jaclyn Montoya MD, FACOG Resident Activity Tracking <Janie Jaimes MD - Last Filed: 05/11/24 06:57> Resident Involvement: Resident Care Provided Care Provided: Adult Hospital Medicine and OB Delivery
[2024-05-11 06:32] LABS: Hematocrit (blood only) 32.4 % (37.0-47.0); Hemoglobin 10.8 g/dl (12.0-16.0)
[2024-05-11 07:42] VITALS: BP 108/70; RESP 20; TEMP 97.9; O2SAT 98
[2024-05-11 11:26] VITALS: PULSE 120
[2024-05-11] MEDS ORDERED: IBUPROFEN 600 MG TAB PO PRN (15:57)
[2024-05-11] MEDS ORDERED: bisacodyL 10 MG SUPP PR PRN (15:57)
[2024-05-11] MEDS: oxyCODONE HCL IR 5 MG TAB (IMMEDIATE RELEASE) PO PRN (16:10)
[2024-05-11] MEDS ORDERED: ACETAMINOPHEN 325 MG TAB PO PRN (21:57)
== END 2024-05-11 17:24 | disposition home or self-care (01) | DRG 788 ==
LOC: EDSTATUS 09:00 → 4S1 10:34 → 4E2 19:05